=== PATIENT | male | born 1960 | race Caucasian/White ===

== ENCOUNTER 2018-08-08 15:44 | Emergency (ER) | payer SELFPAY ==
[~2018-08-08] VITALS: Wt 79.0 kg
[~2018-08-08 15:44] MED LIST: PANT40TA3
[2018-08-08 15:48] VITALS: BP 160/97; PULSE 67; RESP 18
== END 2018-08-08 18:04 | disposition left against medical advice (07) ==
LOC: E/R 15:44
DX: Z53.21 Procedure and treatment not carried out due to patient leaving prior to being seen by health care provider (principal)

== ENCOUNTER 2018-09-24 04:21 | Emergency (ER) | payer OTHER ==
[~2018-09-24] VITALS: Ht 160 cm; Wt 60.0 kg
[2018-09-24 04:24] VITALS: Ht 160 cm; Wt 60.0 kg
[2018-09-24] MEDS ORDERED: ONDANSETRON 4 MG INJ IV STA (04:34)
[2018-09-24] MEDS ORDERED: HYDROmorphONE 1 MG/ML SYG IV STA (04:34)
[2018-09-24] MEDS ORDERED: SOD CHLORIDE 0.9% 500 ML IV STA (04:34)
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
[2018-09-24] MEDS ORDERED: HYDROmorphONE 1 MG/ML SYG IV ONE (06:35)
[2018-09-24 09:11] VITALS: BP 119/81; PULSE 78; RESP 20
== END 2018-09-24 09:12 | disposition home or self-care (01) ==
LOC: E/R 04:21
DX: M54.6 Pain in thoracic spine (principal); R10.13 Epigastric pain; R40.2142 Coma scale, eyes open, spontaneous, at arrival to emergency department; R40.2252 Coma scale, best verbal response, oriented, at arrival to emergency department; R40.2362 Coma scale, best motor response, obeys commands, at arrival to emergency department; Z85.07 Personal history of malignant neoplasm of pancreas
CPT/HCPCS: 36415; 74176; 80053; 83690; 85025; 96361; 96374; 96375; 96376; J1170; J2405; J7040; Z7502